=== PATIENT | female | born 1995 | race Caucasian/White ===

== ENCOUNTER 2017-09-28 17:06 | Emergency (ER) | payer MEDICAID ==
[2017-09-28 18:39] VITALS: BP 124/66; PULSE 74; RESP 16; TEMP 98; O2SAT 99
--- NOTE | 2017-09-28 18:56 | ED PDOC ---
HPI: Wound Care - HPI Time Seen by Provider: 09/28/17 18:48 Chief Complaint (Nursing): Wound Check Chief Complaint (Provider): Laceration, right index finger History Per: Patient History Of Present Illness: Pt cut finger last night. Reports more pain today and redness. Unknown last tetanus vaccine. Past Medical History Reviewed: Historical Data, Nursing Documentation, Vital Signs Vital Signs: Last Vital Signs Temp 98.0 F 09/28/17 18:36 Pulse 74 09/28/17 18:36 Resp 16 09/28/17 18:36 BP 124/66 09/28/17 18:36 Pulse Ox 99 09/28/17 18:36 - Medical History PMH: No Chronic Diseases - Surgical History Surgical History: Tonsillectomy - Family History Family History: States: No Known Family Hx - Living Arrangements Living Arrangements: With Family - Social History Current smoker - smoking cessation education provided: No Alcohol: None Drugs: Denies - Home Medications Home Medications: Ambulatory Orders Medication Instructions Recorded Naproxen [Naprosyn] 500 mg PO BID #20 tab 02/03/15 Ibuprofen [Motrin] 600 mg PO Q8 #30 tab 02/25/15 Acetaminophen with Codeine 1 tab PO Q6 PRN #10 tab 05/04/15 [Tylenol with Codeine No. 3 300 mg-30 mg] Acetaminophen/Hydrocodone Bi 1 tab PO QID PRN #12 tab 08/24/15 [Hydrocodone-Acetaminophen 300 mg-5 mg] Cephalexin [Keflex] 500 mg PO BID #14 capsule 09/28/17 - Allergies Allergies/Adverse Reactions: Allergies Allergy/AdvReac Type Severity Reaction Status Date / Time mushroom Allergy RASH Verified 09/28/17 18:36 Review of Systems ROS Statement: Except As Marked, All Systems Reviewed And Found Negative Constitutional: Negative for: Fever, Chills Skin: Positive for: Other Physical Exam - Reviewed Nursing Documentation Reviewed: Yes Vital Signs Reviewed: Yes - Physical Exam Appears: Positive for: Well, Non-toxic, No Acute Distress Head Exam: Positive for: ATRAUMATIC, NORMAL INSPECTION, NORMOCEPHALIC Skin: Positive for: Warm. Negative for: Normal Color (1.5 cm linear laceration , well approximate. No drainage. Localized erythema ) Eye Exam: Positive for: Normal appearance ENT: Positive for: Normal ENT Inspection Neck: Positive for: Normal, Painless ROM Respiratory: Negative for: Accessory Muscle Use, Respiratory Distress Back: Positive for: Normal Inspection Extremity: Positive for: Normal ROM. Negative for: Tenderness Neurologic/Psych: Positive for: Alert, Oriented - ECG O2 Sat by Pulse Oximetry: 99 Disposition - Clinical Impression Clinical Impression: Finger laceration, Tetanus toxoid vaccination administered at current visit - Patient ED Disposition Is Patient to be Admitted: No Counseled Patient/Family Regarding: Diagnosis, Need For Followup - Disposition Disposition: Routine/Home Disposition Time: 18:56 Condition: GOOD Prescriptions: Cephalexin [Keflex] 500 mg PO BID #14 capsule Instructions: Laceration Without Closure (ED) Forms: [employer] ([place])
== END 2017-09-28 19:23 | disposition home or self-care (01) ==
LOC: H.ER 17:06
DX: S61.201A Unspecified open wound of left index finger without damage to nail, initial encounter (principal); W26.0XXA Contact with knife, initial encounter; Y92.89 Other specified places as the place of occurrence of the external cause